=== PATIENT | female | born 1970 | race African-American/Black ===

== ENCOUNTER 2021-08-13 10:56 | Emergency (ER) | payer OTHER ==
[~2021-08-13] VITALS: Ht 162.6 cm; Wt 73.0 kg
[2021-08-13] MEDS ORDERED: KETOROLAC 30MG/ML VIAL IV STA (11:24)
[2021-08-13] MEDS ORDERED: ASPIRIN 81MG TABLET PO ONE (11:30)
[2021-08-13 11:41] LABS: BASOPHILS % 0.3 % (0.0-2.0); HEMATOCRIT. 36.7 % (36.0-48.0); HEMOGLOBIN. 11.5 g/dL (12.0-16.0); LYMPHOCYTES % 29.9 % (20.0-50.0); MEAN CORPUSCULAR HEMOGLOBIN 22.3 pg (28.0-32.0); MEAN CORPUSCULAR VOLUME 71.5 fL (81.0-99.0); NEUTROPHILS % 60.8 % (40.0-76.0); PLATELET 224 x1000/uL (130-400); RED BLOOD CELL COUNT 5.14 mill/uL (4.2-5.4); RED CELL DISTRIBUTION WIDTH 18.9 % (11.6-14.6)
[2021-08-13 11:47] LABS: CHLORIDE 106 mEq/L (98-107)
[2021-08-13 11:50] LABS: D-DIMER 0.57 mg/L FEU (<0.50); PROTHROMBIN TIME 11.1 sec (9.6-11.0)
[2021-08-13] MEDS ORDERED: METRONIDAZOLE 500 MG PREMIX 100 ML IV ONE (12:30)
[2021-08-13] MEDS ORDERED: LEVOFLOXACIN 500MG PREMIX 100 ML IV ONE (12:30)
[2021-08-13] MEDS ORDERED: IOHEXOL-300 100 ML BOTTLE ONE (12:33)
[2021-08-13 14:52] VITALS: BP 117/60
== END 2021-08-13 14:56 | disposition short-term general hospital (02) ==
LOC: ER 10:56
DX: K35.80 Unspecified acute appendicitis (principal)
CPT/HCPCS: 36415; 71045; 74177; 80053; 83880; 84484; 85025; 85379; 85610; 93005; 93971; 96365; 96368; 96375; 99285; J1885; J1956; J3490; Q9967; Z7610